=== PATIENT | male | born 1965 | race Caucasian/White ===

== ENCOUNTER → 2019-01-12 | Outpatient (CLI) | payer OTHER | END | disposition home or self-care (01) | LOC: CFH 15:31 | PROVIDERS: ATTEND Physician Assistant | DX: R60.0 Localized edema (principal); M79.605 Pain in left leg ==

== ENCOUNTER → 2021-04-24 | Outpatient (CLI) | payer MEDICAID | END | disposition home or self-care (01) | LOC: RAD 04-22 16:03 | PROVIDERS: ATTEND Family Medicine | DX: M25.511 Pain in right shoulder (principal); M25.512 Pain in left shoulder ==

== ENCOUNTER 2021-05-06 06:49 | Outpatient (CLI) | payer MEDICAID | END 2021-05-06 23:59 | disposition home or self-care (01) | LOC: CVU 06:49 | PROVIDERS: ATTEND Family Medicine | DX: I83.92 Asymptomatic varicose veins of left lower extremity (principal) | CPT/HCPCS: 93971 ==